=== PATIENT | male | born 1935 | race Caucasian/White ===

== ENCOUNTER 2016-11-13 15:52 | Emergency (ER) | payer MEDICARE, OTHER ==
[~2016-11-13] VITALS: Ht 165.1 cm; Wt 60.0 kg
[2016-11-13 15:53] VITALS: BP 136/89; PULSE 74; RESP 15; TEMP 97.3; O2SAT 97
[2016-11-13] MEDS ORDERED: LUMI0.01 EACH EYE (16:14)
--- NOTE | 2016-11-13 16:53 | PD ---
HPI Chief Complaint: Cold / Flu Symptoms Time Seen by Provider: 16:41 Travel History International Travel<30 days: No Contact w/Intl Traveler<30days: No Traveled to known affect area: No History of Present Illness HPI 81-year-old male complains of coughing congestion. Patient states the symptoms started about 2 months ago. Patient states the cough is persistent productive. Patient has history of COPD and hypertension. Patient is a nonsmoker. Patient denies any chest pain or shortness of breath. Patient states that he has intermittent nausea but no vomiting or diarrhea. Patient was seen at local urgent care center and about 4 weeks ago. Patient was given prescription for steroid, Levaquin and Tessalon. Patient finished the medications as directed. Patient states that he had persistent productive cough despite the medications. Patient denies abdominal pain. Patient denies any focal weakness or numbness of the extremity. PFSH Past Medical History Asthma: Yes Diminished Hearing: No Hypertension: Yes Tetanus Vaccination: Unknown Influenza Vaccination: No ?: Not Past Surgical History Eye Surgery: Yes (JOSE CATARCT) Social History Alcohol Use: Yes ([facility]) Tobacco Use: No Substance Use: No Allergies-Medications (Allergen,Severity, Reaction): Coded Allergies: No Known Allergies (Unverified , 11/13/16) Reported Meds & Prescriptions Reported Meds & Active Scripts Active Reported Lumigan Opth Drops (Bimatoprost) 0.01% Soln 1 Drop EACH EYE DAILY Review of Systems General / Constitutional: No: Fever Eyes: No: Visual changes HENT: No: Headaches Cardiovascular: No: Chest Pain or Discomfort Respiratory: Positive: Cough, No: Shortness of Breath Gastrointestinal: No: Abdominal Pain Genitourinary: No: Dysuria Musculoskeletal: No: Pain Skin: No Rash Neurologic: No: Weakness Psychiatric: No: Depression Endocrine: No: Polydipsia Hematologic/Lymphatic: No: Easy Bruising Physical Exam Narrative GENERAL: Well-nourished, well-developed patient. SKIN: Warm and dry. HEAD: Normocephalic. EYES: No scleral icterus. No injection or drainage. NECK: Supple, trachea midline. No JVD or lymphadenopathy. CARDIOVASCULAR: Regular rate and rhythm without murmurs, gallops, or rubs. RESPIRATORY: Breath sounds equal bilaterally. No accessory muscle use. Few rhonchi at the bases. No wheezes. GASTROINTESTINAL: Abdomen soft, non-tender, nondistended. MUSCULOSKELETAL: No cyanosis, or edema. BACK: Nontender without obvious deformity. No CVA tenderness. Neurologic exam: Patient is awake and alert oriented 3. No obvious focal neurological deficit. Data Data Last Documented VS Vital Signs Date Time Temp Pulse Resp B/P Pulse Ox O2 Delivery O2 Flow Rate FiO2 11/13/16 16:18 20 Room Air 11/13/16 15:53 97.3 74 136/89 97 Orders Complete Blood Count With Diff (11/13/16 16:49) Basic Metabolic Panel (Bmp) (11/13/16 16:49) Influenzae A/B Antigen (11/13/16 16:49) Chest, Single Ap (11/13/16 16:49) Iv Access Insert/Monitor (11/13/16 16:49) Labs Laboratory Tests Test 11/13/16 17:54 White Blood Count 15.5 TH/MM3 Red Blood Count 4.38 MIL/MM3 Hemoglobin 13.2 GM/DL Hematocrit 40.1 % Mean Corpuscular Volume 91.6 FL Mean Corpuscular Hemoglobin 30.2 PG Mean Corpuscular Hemoglobin 33.0 % Concent Red Cell Distribution Width 12.8 % Platelet Count 115 TH/MM3 Mean Platelet Volume 8.8 FL Neutrophils (%) (Auto) 67.1 % Lymphocytes (%) (Auto) 17.1 % Monocytes (%) (Auto) 7.6 % Eosinophils (%) (Auto) 1.1 % Basophils (%) (Auto) 7.1 % Neutrophils # (Auto) 10.3 TH/MM3 Lymphocytes # (Auto) 2.7 TH/MM3 Monocytes # (Auto) 1.2 TH/MM3 Eosinophils # (Auto) 0.2 TH/MM3 Basophils # (Auto) 1.1 TH/MM3 CBC Comment AUTO DIFF Differential Total Cells 100 Counted Neutrophils % (Manual) 80 % Band Neutrophils % 1 % Lymphocytes % 12 % Monocytes % 5 % Eosinophils % 2 % Neutrophils # (Manual) 12.6 TH/MM3 Differential Comment FINAL DIFF MANUAL Sodium Level 144 MEQ/L Potassium Level 4.3 MEQ/L Chloride Level 110 MEQ/L Carbon Dioxide Level 26.1 MEQ/L Anion Gap 8 MEQ/L Blood Urea Nitrogen 20 MG/DL Creatinine 1.20 MG/DL Estimat Glomerular Filtration 58 ML/MIN Rate Random Glucose 89 MG/DL Calcium Level 8.6 MG/DL MDM Medical Decision Making Medical Screen Exam Complete: Yes Emergency Medical Condition: Yes Interpretation(s) 1813 PM. Chest x-ray shows no acute consolidation. CBC WBC 15.5. Platelet 115. Normal differential. Influenza AB antigen negative. 1833 PM. BUN 20. Differential Diagnosis Differential diagnosis including acute exacerbation COPD, bronchitis, pneumonia , PE, pneumothorax. Narrative Course 81-year-old male with persistent coughing congestion. Patient states that the symptoms started 2 months ago. Patient has history of COPD. Diagnosis Primary Impression: Bronchitis Patient Instructions: General Instructions Additional Instructions: Medications as directed. Follow-up with personal physician. Return if persistent problem or worse. Med/Other Pt SpecificInfo: Prescription(s) given Scripts Azithromycin (Zithromax Z-Milad)250 Mg Sdpm850 Mg PO DIRECTED #1 DSPK Ref 0 500 MG (2 tabs) day 1, then 1 tab days 2-5. Prov:Andrea Keys MD 11/13/16 [Phenergan W Codein] No Conflict Check10 Ml PO Q6HR #180 Prov:Andrea Keys MD 11/13/16 Disposition: 01 DISCHARGE HOME Condition: Stable Andrea Keys MD Nov 13, 2016 16:53
--- NOTE | 2016-11-13 17:43 | RADHPO ---
EXAM DATE/TIME: 11/13/2016 17:28 [facility] COMPARISON: No previous studies available for comparison. INDICATIONS : Short of breath, cough MEDICAL HISTORY : Chronic obstructive pulmonary disease. SURGICAL HISTORY : None. ENCOUNTER: Initial ACUITY: 1 month PAIN SCORE: 0/10 LOCATION: Bilateral chest FINDINGS: A single view of the chest demonstrates the lungs to be symmetrically aerated without evidence of mas s, infiltrate or effusion. The cardiomediastinal contours are unremarkable. Osseous structures are intact. CONCLUSION: No acute cardiopulmonary disease demonstrated. Ed Mcfarland MD on November 13, 2016 at 17:41 Board Certified Radiologist. This report was verified electronically.
[2016-11-13 18:02] LABS: AUTOMATED NEUTROPHIL # 10.3 TH/MM3 (1.8-7.7); BASOPHIL # 1.1 TH/MM3 (0-0.2); BASOPHIL % 7.1 % (0.0-2.0); EOSINOPHIL # 0.2 TH/MM3 (0-0.4); EOSINOPHIL % 1.1 % (0.0-4.0); HEMATOCRIT 40.1 % (39.0-51.0); LYMPH % 17.1 % (9.0-44.0); LYMPHOCYTE # 2.7 TH/MM3 (1.0-4.8); MEAN CELL VOLUME 91.6 FL (80.0-100.0); MEAN CORPUSCULAR HEMOGLOBIN 30.2 PG (27.0-34.0); MONO % 7.6 % (0.0-8.0); NEUT % 67.1 % (16.0-70.0); PLATELET COUNT 115 TH/MM3 (150-450); RED BLOOD COUNT 4.38 MIL/MM3 (4.50-5.90); RED CELL DISTRIBUTION WIDTH 12.8 % (11.6-17.2); WHITE BLOOD COUNT 15.5 TH/MM3 (4.0-11.0)
[2016-11-13 18:08] LABS: POTASSIUM 4.3 MEQ/L (3.5-5.1)
[2016-11-13 18:11] LABS: BICARBONATE 26.1 MEQ/L (21.0-32.0); HEMO FLAGS AUTO DIFF
[2016-11-13 18:28] LABS: BANDS 1 % (0-6); EOSINOPHILS 2 % (0-4); NEUTROPHIL # MANUAL DIFF 12.6 TH/MM3 (1.8-7.7); POLYS (SEG NEUTROPHILS) 80 % (16-70); SCAN/DIFF FINAL DIFF MANUAL; WBC DIFF SAMPLE 100
[2016-11-13] MEDS ORDERED: ZITHTAB PO (18:39)
[2016-11-13] MEDS ORDERED: PHENERGAN W CODEIN PO (18:39)
== END 2016-11-13 18:47 | disposition home or self-care (01) ==
LOC: PHEFT 15:52
DX: J40 Bronchitis, not specified as acute or chronic (principal); J45.909 Unspecified asthma, uncomplicated; I10 Essential (primary) hypertension
CPT/HCPCS: 71010; 80048; 85007; 85027; 87804; 99283

== ENCOUNTER 2016-11-17 13:38 | Inpatient (IN) | payer MEDICARE ==
[~2016-11-17] VITALS: Ht 165.1 cm; Wt 69.1 kg
[2016-11-17] VITALS (7 sets, daily range): BP systolic 158–178; BP diastolic 71–80; PULSE 68–74; RESP 20–28; TEMP 96–98.6; O2SAT 92–100
[~2016-11-17 13:38] MED LIST: LUMI0.01 EACH EYE; PHENERGAN W CODEIN PO; ZITHTAB PO
[2016-11-17] MEDS ORDERED: CHOL20003 (14:14)
[2016-11-17] MEDS ORDERED: SYMB160A INH (14:14)
[2016-11-17] MEDS ORDERED: ASPI81TA81 (14:14)
[2016-11-17] MEDS ORDERED: FERR83TA (14:14)
[2016-11-17] MEDS ORDERED: DIOV80TA4 PO (14:14)
[2016-11-17] MEDS ORDERED: SODIUM CHLOR 0.9% 1000 ML INJ 1,000 ML IV SCH (14:30)
[2016-11-17 15:17] LABS: AUTOMATED NEUTROPHIL # 7.1 TH/MM3 (1.8-7.7); BASOPHIL # 0.1 TH/MM3 (0-0.2); BASOPHIL % 0.8 % (0.0-2.0); EOSINOPHIL # 0.1 TH/MM3 (0-0.4); HEMATOCRIT 39.9 % (39.0-51.0); HEMO FLAGS DIFF FINAL; LYMPH % 8.3 % (9.0-44.0); LYMPHOCYTE # 0.7 TH/MM3 (1.0-4.8); MEAN CELL VOLUME 92.7 FL (80.0-100.0); MEAN CORPUSCULAR HEMOGLOBIN 30.2 PG (27.0-34.0); MEAN CORPUSCULAR HGB CONC 32.6 % (32.0-36.0); MONO % 6.5 % (0.0-8.0); NEUT % 83.4 % (16.0-70.0); PLATELET COUNT 177 TH/MM3 (150-450); RED BLOOD COUNT 4.31 MIL/MM3 (4.50-5.90); RED CELL DISTRIBUTION WIDTH 13.2 % (11.6-17.2); WHITE BLOOD COUNT 8.6 TH/MM3 (4.0-11.0)
[2016-11-17 15:27] LABS: APTT (PATIENT) 30.2 SEC (24.3-30.1); PROTHROMBIN TIME - PATIENT 10.8 SEC (9.8-11.6)
[2016-11-17 15:34] LABS: ALT (GPT) 17 U/L (12-78); ANION GAP 10 MEQ/L (5-15); AST (GOT) 16 U/L (15-37); BICARBONATE 26.5 MEQ/L (21.0-32.0); BLOOD UREA NITROGEN 19 MG/DL (7-18); CHLORIDE 109 MEQ/L (98-107); GLOMERULAR FILTRATION RATE 60 ML/MIN (>89); SODIUM (NA) 145 MEQ/L (136-145)
[2016-11-17 15:36] LABS: POTASSIUM 4.5 MEQ/L (3.5-5.1)
[2016-11-17 15:40] LABS: BLOOD, URINE NEG (NEG); COMMENT (UR) CULT NOT INDICATED; CULTURE IF INDICATED CULT NOT INDICATED; GLUCOSE,URINE NEG (NEG); HYALINE CAST, URINE 1 /lpf (RARE); KETONE, URINE 10 mg/dL (NEG); MUCUS URINE FEW /lpf (OCC); NITRITE,URINE NEG (NEG); PH, URINE 5.5 (5.0-8.5); URINE COLOR YELLOW (YELLW/STRAW)
[2016-11-17 15:42] LABS: ALKALINE PHOSPHATASE 90 U/L (45-117); TOTAL BILIRUBIN ADULT 0.5 MG/DL (0.2-1.0)
--- NOTE | 2016-11-17 15:42 | RADRPT ---
EXAM DATE/TIME: 11/17/2016 15:26 [facility] COMPARISON: No previous studies available for comparison. INDICATIONS : Confusion, altered mental status and general weakness. RADIATION DOSE: 56.36 CTDIvol (mGy) MEDICAL HISTORY : Hypertension. Asthma. SURGICAL HISTORY : None. ENCOUNTER: Initial ACUITY: 1 day PAIN SCALE: 0/10 LOCATION: cranial TECHNIQUE: Multiple contiguous axial images were obtained of the head. Using automated exposure control and adj ustment of the mA and/or kV according to patient size, radiation dose was kept as low as reasonably a chievable to obtain optimal diagnostic quality images. FINDINGS: CEREBRUM: The ventricles and cortical sulci are mildly widened. No evidence of midline shift, mass lesion, hem orrhage or acute infarction. No extra-axial fluid collections are seen. POSTERIOR FOSSA: The cerebellum and brainstem are intact. The 4th ventricle is midline. The cerebellopontine angle i s unremarkable. EXTRACRANIAL: The visualized portion of the orbits is intact. There appears to be mild soft tissue swelling of the posterior medial superior right parietal scalp. SKULL: The calvaria is intact. No evidence of skull fracture. CONCLUSION: 1. No acute intracranial abnormality seen. 2. Age-related atrophy. Ed Echols MD on November 17, 2016 at 15:39 Board Certified Radiologist. This report was verified electronically.
--- NOTE | 2016-11-17 15:49 | RADRPT ---
EXAM DATE/TIME: 11/17/2016 15:24 [facility] COMPARISON: CHEST SINGLE AP, November 13, 2016, 17:28. INDICATIONS : Patient has had chest pain in the center of her chest and cough for a few months. Previous smoker. MEDICAL HISTORY : Chronic obstructive pulmonary disease. Asthma SURGICAL HISTORY : None. ENCOUNTER: Initial ACUITY: 1 day PAIN SCORE: 4/10 LOCATION: Bilateral chest FINDINGS: A single view of the chest demonstrates the lungs to be symmetrically aerated without evidence of mas s, infiltrate or effusion. The cardiomediastinal contours are unremarkable. There is an old healed l eft clavicle fracture.. CONCLUSION: No acute disease. Ed Echols MD on November 17, 2016 at 15:46 Board Certified Radiologist. This report was verified electronically.
[2016-11-17 15:50] LABS: CREATINE KINASE 55 U/L (39-308)
--- NOTE | 2016-11-17 16:36 | PD ---
HPI Chief Complaint: Altered Mental Status Time Seen by Provider: 14:15 Travel History International Travel<30 days: No Contact w/Intl Traveler<30days: No Traveled to known affect area: No History of Present Illness HPI 81-year-old male complains of generalized malaise and weakness, short of breath , coughing congestion, confusion. Patient was seen in emergency room 4 days ago with diagnosis of bronchitis. Patient was given prescription of Phenergan with codeine and Z-Milad. Patient has been taking the medications as directed. Patient states that he started having increasing confusion 3 hours prior to going back to the emergency room. Patient denies any headache. Patient states that he has intermittent pressure for the past 2 weeks. Patient denies any fever chills. Patient denies any nausea vomiting diarrhea. Patient denies abdominal pain. Patient denies any focal weakness or numbness of extremity. Patient has been eating well at home. PFSH Past Medical History Asthma: Yes Diminished Hearing: Yes ([place]) Hypertension: Yes Tetanus Vaccination: Unknown ?: Not Past Surgical History Eye Surgery: Yes (JOSE CATARCT) Social History Alcohol Use: Yes (occ) Tobacco Use: No Substance Use: No Allergies-Medications (Allergen,Severity, Reaction): Coded Allergies: No Known Allergies (Unverified , 11/13/16) Reported Meds & Prescriptions Reported Meds & Active Scripts Active Zithromax Z-Milad (Azithromycin) 250 Mg Dspk 250 Mg PO DIRECTED 500 MG (2 tabs) day 1, then 1 tab days 2-5. [Phenergan W Codein] 10 Ml PO Q6HR Reported D3 (Cholecalciferol) 2,000 Unit Cap Diovan (Valsartan) 80 Mg Tab 80 Mg PO DAILY Ferrous Sulfate 27 Mg Tab Aspir-81 (Aspirin) 81 Mg Tabdr Symbicort Inh (Budesonide/Formoterol Fumarate) 160-4.5 Mcg/Act Aero 2 Puff INH Q12HR Lumigan Opth Drops (Bimatoprost) 0.01% Soln 1 Drop EACH EYE DAILY Review of Systems General / Constitutional: No: Fever Eyes: No: Visual changes HENT: No: Headaches Cardiovascular: No: Chest Pain or Discomfort Respiratory: Positive: Cough, No: Shortness of Breath Gastrointestinal: No: Abdominal Pain Genitourinary: No: Dysuria Musculoskeletal: No: Pain Skin: No Rash Neurologic: No: Weakness Psychiatric: No: Depression Endocrine: No: Polydipsia Hematologic/Lymphatic: No: Easy Bruising Physical Exam Narrative GENERAL: Well-nourished, well-developed patient. SKIN: Warm and dry. HEAD: Normocephalic. EYES: No scleral icterus. No injection or drainage. NECK: Supple, trachea midline. No JVD or lymphadenopathy. CARDIOVASCULAR: Regular rate and rhythm without murmurs, gallops, or rubs. RESPIRATORY: Breath sounds equal bilaterally. No accessory muscle use. GASTROINTESTINAL: Abdomen soft, non-tender, nondistended. MUSCULOSKELETAL: No cyanosis, or edema. BACK: Nontender without obvious deformity. No CVA tenderness. Neurologic exam: Patient is awake with mild drowsiness. Patient answered all questions appropriately. No obvious focal neurological deficit. Data Data Last Documented VS Vital Signs Date Time Temp Pulse Resp B/P Pulse Ox O2 Delivery O2 Flow Rate FiO2 11/17/16 15:45 71 21 165/72 98 Room Air 11/17/16 13:44 98.6 Orders Electrocardiogram (11/17/16 ) Complete Blood Count With Diff (11/17/16 14:22) Comprehensive Metabolic Panel (11/17/16 14:22) Creatine Kinase (Cpk) (11/17/16 14:22) Troponin I (11/17/16 14:22) B-Type Natriuretic Peptide (11/17/16 14:22) Prothrombin Time / Inr (Pt) (11/17/16 14:22) Act Partial Throm Time (Ptt) (11/17/16 14:22) Blood Culture (11/17/16 14:22) Urinalysis - C+S If Indicated (11/17/16 14:22) Thyroid Stimulating Hormone (11/17/16 14:22) Chest, Single Ap (11/17/16 14:22) Ct Brain W/O Iv Contrast(Rout) (11/17/16 14:22) Iv Access Insert/Monitor (11/17/16 14:22) Ecg Monitoring (11/17/16 14:22) Oximetry (11/17/16 14:22) Lactic Acid (11/17/16 14:22) Sodium Chlor 0.9% 1000 Ml Inj (Ns 1000 M (11/17/16 14:30) Levofloxacin 750 Mg Premix Inj (Levaquin (11/17/16 16:45) Labs Laboratory Tests Test 11/17/16 11/17/16 15:03 15:10 White Blood Count 8.6 TH/MM3 Red Blood Count 4.31 MIL/MM3 Hemoglobin 13.0 GM/DL Hematocrit 39.9 % Mean Corpuscular Volume 92.7 FL Mean Corpuscular Hemoglobin 30.2 PG Mean Corpuscular Hemoglobin 32.6 % Concent Red Cell Distribution Width 13.2 % Platelet Count 177 TH/MM3 Mean Platelet Volume 8.9 FL Neutrophils (%) (Auto) 83.4 % Lymphocytes (%) (Auto) 8.3 % Monocytes (%) (Auto) 6.5 % Eosinophils (%) (Auto) 1.0 % Basophils (%) (Auto) 0.8 % Neutrophils # (Auto) 7.1 TH/MM3 Lymphocytes # (Auto) 0.7 TH/MM3 Monocytes # (Auto) 0.6 TH/MM3 Eosinophils # (Auto) 0.1 TH/MM3 Basophils # (Auto) 0.1 TH/MM3 CBC Comment DIFF FINAL Differential Comment Prothrombin Time 10.8 SEC Prothromb Time International 1.0 RATIO Ratio Activated Partial 30.2 SEC Thromboplast Time Sodium Level 145 MEQ/L Potassium Level 4.5 MEQ/L Chloride Level 109 MEQ/L Carbon Dioxide Level 26.5 MEQ/L Anion Gap 10 MEQ/L Blood Urea Nitrogen 19 MG/DL Creatinine 1.17 MG/DL Estimat Glomerular Filtration 60 ML/MIN Rate Random Glucose 86 MG/DL Calcium Level 9.2 MG/DL Total Bilirubin 0.5 MG/DL Aspartate Amino Transf 16 U/L (AST/SGOT) Alanine Aminotransferase 17 U/L (ALT/SGPT) Alkaline Phosphatase 90 U/L Total Creatine Kinase 55 U/L Troponin I LESS THAN 0.02 NG/ML B-Type Natriuretic Peptide 114 PG/ML Total Protein 7.5 GM/DL Albumin 3.3 GM/DL Thyroid Stimulating Hormone 0.551 uIU/ML 3rd Gen Urine Color YELLOW Urine Turbidity CLEAR Urine pH 5.5 Urine Specific [place] 1.023 Urine Protein TRACE mg/dL Urine Glucose (UA) NEG mg/dL Urine Ketones 10 mg/dL Urine Occult Blood NEG Urine Nitrite NEG Urine Bilirubin NEG Urine Urobilinogen 2.0 MG/DL Urine Leukocyte Esterase NEG Urine RBC LESS THAN 1 /hpf Urine WBC LESS THAN 1 /hpf Urine Hyaline Casts 1 /lpf Urine Mucus FEW /lpf Microscopic Urinalysis Comment CULT NOT INDICATED Lactic Acid Level 3.0 mmol/L MDM Medical Decision Making Medical Screen Exam Complete: Yes Emergency Medical Condition: Yes Interpretation(s) Last Impressions Head CT 11/17/16 1422 Signed Impressions: Service Date/Time: November 15:26 - CONCLUSION: 1. No acute intracranial abnormality seen. 2. Age-related atrophy. Ed Echols MD Chest X-Ray 11/17/161421 Signed Impressions: Service Date/Time: November 15:24 - CONCLUSION: No acute disease. Ed Echols MD 1634 PM. CBC within normal limit. WBC 8.6. 83 neutrophil. CMP within normal limit. BUN 19. Lactic acid 3.0.. Troponin normal. BNP 114. Differential Diagnosis Differential diagnosis including bronchitis, pneumonia, electrolyte abnormality , dehydration, sepsis Narrative Course 81-year-old male with generalized malaise and weakness, persistent cough, confusion this morning. Patient was treated for bronchitis 4 days ago. Normal saline solution 100 cc an hour. Levaquin 750 mg IV. Andrea Keys MD Nov 17, 2016 16:35
[2016-11-17] MEDS ORDERED: LEVOFLOXACIN 750 MG PREMIX INJ 150 ML IV ONE (16:45)
[2016-11-17] MEDS ORDERED: PROM6.256 PO (16:56)
--- NOTE | 2016-11-17 16:59 | HHI.HP ---
HPI Service [facility] Hospitalists Primary Care Physician No Primary Care Physician Admission Diagnosis Diagnoses: Chief Complaint: cough, congestion, confusion Travel History International Travel<30 Days: No Contact w/Intl Traveler <30 Da: No Traveled to Known Affected Are: No History of Present Illness 81-year-old male with history of childhood asthma, COPD, prior tobacco use, hypertension, hard of hearing, presents with a two-week history of cough, congestion, shortness of breath, and also increasing confusion today. The patient's is at bedside who assists with the history as the patient is very drowsy, hard of hearing, and oriented to person and year only; states he is at the dentist's office. The patient started experiencing nasal congestion and cough productive of clear sputum approximately two weeks ago. He went to an urgent care who gave him a prescription for an unknown antibiotic and prednisone. The patient never fully recovered, was having decreasing appetite and ongoing cough/congestion therefore he presented to [facility] ER on 11/13/16, chest x-ray was clear, diagnosed with bronchitis, and he was discharged with a Z-Milad and Phenergan with codeine. He has been taking his medications as prescribed. The patient was doing slightly better, however today he became acutely confused, talking nonsense, saying he needed one hundred dollars to pay someone back, and also did not know where the bathroom was in his own home. Last use of phenergan with codeine was yesterday. Denies any recent fevers/chills. Still with a cough productive of clear sputum. He has not been eating regularly and has lost around 30lbs in the past 6 months, previously weighed 160lbs. [place] esophageal [place] ( [place] however now food is starting to get stuck again. The tried to help the patient take a shower today, however he became extremely weak in the legs and needed a lot of assistance. This prompted her to bring him to the ER. While in the ER, the patient is very drowsy, constantly has to be awoken from sleep to answer questions, he would smile and make jokes when asking orientation questions but ultimately was only oriented to person, states the date is March 18, 2017, and that he is at the dentist's office. He cannot tell me what made him come to the hospital. Review of Systems ROS Limitations: Altered Mental Status, Hearing Impaired Except as stated in HPI: all other systems reviewed are Neg Past Family Social History Past Medical History Asthma/COPD Hypertension Hard of hearing Past Surgical History Bilateral cataract surgery EGD with dilatation in May 2016 Colonoscopy 2 years ago Reported Medications Zithromax Z-Milad (Azithromycin) 250 Mg Dspk 250 Mg PO DIRECTED 500 MG (2 tabs) day 1, then 1 tab days 2-5. [Phenergan W Codein] 10 Ml PO Q6HR D3 (Cholecalciferol) 2,000 Unit Cap Diovan (Valsartan) 80 Mg Tab 80 Mg PO DAILY Ferrous Sulfate 27 Mg Tab Aspir-81 (Aspirin) 81 Mg Tabdr Symbicort Inh (Budesonide/Formoterol Fumarate) 160-4.5 Mcg/Act Aero 2 Puff INH Q12HR [place] Opth Drops (Bimatoprost) 0.01% Soln 1 Drop EACH EYE DAILY Allergies: Coded Allergies: No Known Allergies (Unverified , 11/13/16) Active Ordered Medications Current Medications Medications (Trade) Dose Ordered Sig/Danielle Route Start Time Stop Time Status Last Admin (Levaquin 750 Mg Premix Inj) 150 ml @ 100 mls/hr ONCE ONCE IV 11/17/16 16:45 11/17/16 18:14 11/17/16 17:01 (Symbicort 160-4.5 Inh) 2 puff Q12HR INH 11/17/16 21:00 UNV (Diovan) 80 mg DAILY PO 11/18/16 09:00 UNV Non-Formulary Medication 1 drop 1 drop DAILY EACH EYE 11/18/16 09:00 UNV (NS 1000 ml Inj) 1,000 ml @ 60 mls/hr [id number] IV 11/17/16 17:12 UNV (NS Flush) 2 ml UNSCH PRN FLUSH 11/17/16 17:15 UNV (NS Flush) 2 ml BID FLUSH 11/17/16 21:00 UNV (Zofran Inj) 4 mg Q6H PRN IVP 11/17/16 17:15 UNV (Colace) 100 mg Q12H PRN PO 11/17/16 17:15 UNV (Tylenol) 650 mg Q6H PRN PO 11/17/16 17:15 UNV ([place] 5-325 Mg) 1 tab Q4H PRN PO 11/17/16 17:15 UNV Naloxone HCl 0.4 mg 0.4 mg UNSCH PRN IV 11/17/16 17:15 UNV (Levaquin 750 Mg Premix Inj) 150 ml @ 100 mls/hr Q24H IV 11/18/16 17:00 UNV Family History Father in his sleep 40 years ago, unknown medical problems Mother around age 90, no significant medical problems Patient's children are healthy. Social History Prior tobacco use, started in his early 40s, smoked 1 PPD, quit 6months ago Alcohol use - 1 drink every evening, however not in the past few weeks Drug use - denies Lives with his Physical Exam Vital Signs Vital Signs Date Time Temp Pulse Resp B/P Pulse Ox O2 Delivery O2 Flow Rate FiO2 11/17/16 15:45 71 21 165/72 98 Room Air 11/17/16 14:53 100 Room Air 11/17/16 14:08 73 20 100 Room Air 11/17/16 14:07 74 22 178/80 100 Room Air 11/17/16 13:44 98.6 73 28 160/74 Room Air Physical Exam GENERAL: Well-nourished, well-developed elderly male patient in [facility]. SKIN: Warm and dry. No rash. HEAD: Normocephalic. Atraumatic. EYES: Pupils equal and round. No scleral icterus. No injection or drainage. ENT: No nasal bleeding or discharge. Mucous membranes slightly dry. NECK: Supple. Trachea midline. CARDIOVASCULAR: Regular rate and rhythm. S1, S2 noted. No murmur appreciated. RESPIRATORY: No accessory muscle use. Clear to auscultation. Breath sounds equal bilaterally. GASTROINTESTINAL: Abdomen soft, non-tender, nondistended. Normoactive bowel sounds x4. MUSCULOSKELETAL: No obvious deformities. Extremities without clubbing, cyanosis , or edema. NEUROLOGICAL: Awake and alert, oriented to person/year only. No obvious cranial nerve deficits. Motor grossly within normal limits. Moves all extremities equally and spontaneously however generalized weakness, does not follow commands with strength testing. Normal speech. PSYCHIATRIC: Appropriate mood and affect; insight and judgment limited currently. Laboratory Laboratory Tests Test 11/17/16 11/17/16 15:03 15:10 White Blood Count 8.6 Red Blood Count 4.31 Hemoglobin 13.0 Hematocrit 39.9 Mean Corpuscular Volume 92.7 Mean Corpuscular Hemoglobin 30.2 Mean Corpuscular Hemoglobin 32.6 Concent Red Cell Distribution Width 13.2 Platelet Count 177 Mean Platelet Volume 8.9 Neutrophils (%) (Auto) 83.4 Lymphocytes (%) (Auto) 8.3 Monocytes (%) (Auto) 6.5 Eosinophils (%) (Auto) 1.0 Basophils (%) (Auto) 0.8 Neutrophils # (Auto) 7.1 Lymphocytes # (Auto) 0.7 Monocytes # (Auto) 0.6 Eosinophils # (Auto) 0.1 Basophils # (Auto) 0.1 CBC Comment DIFF FINAL Differential Comment Prothrombin Time 10.8 Prothromb Time International 1.0 Ratio Activated Partial 30.2 Thromboplast Time Sodium Level 145 Potassium Level 4.5 Chloride Level 109 Carbon Dioxide Level 26.5 Anion Gap 10 Blood Urea Nitrogen 19 Creatinine 1.17 Estimat Glomerular Filtration 60 Rate Random Glucose 86 Calcium Level 9.2 Total Bilirubin 0.5 Aspartate Amino Transf 16 (AST/SGOT) Alanine Aminotransferase 17 (ALT/SGPT) Alkaline Phosphatase 90 Total Creatine Kinase 55 Troponin I LESS THAN 0.02 B-Type Natriuretic Peptide 114 Total Protein 7.5 Albumin 3.3 Thyroid Stimulating Hormone 0.551 3rd Gen Urine Color YELLOW Urine Turbidity CLEAR Urine pH 5.5 Urine Specific [place] 1.023 Urine Protein TRACE Urine Glucose (UA) NEG Urine Ketones 10 Urine Occult Blood NEG Urine Nitrite NEG Urine Bilirubin NEG Urine Urobilinogen 2.0 Urine Leukocyte Esterase NEG Urine RBC LESS THAN 1 Urine WBC LESS THAN 1 Urine Hyaline Casts 1 Urine Mucus FEW Microscopic Urinalysis Comment CULT NOT INDICATED Lactic Acid Level 3.0 Date/Time Procedure Status Source Growth 11/17/16 15:10 Aerobic Blood Culture Received Blood Peripheral Pending 11/17/16 15:10 Anaerobic Blood Culture Received Blood Peripheral Pending Result Diagram: 11/17/16 1503 11/17/16 1503 Imaging Last Impressions Head CT 11/17/16 1422 Signed Impressions: Service Date/Time: November 15:26 - CONCLUSION: 1. No acute intracranial abnormality seen. 2. Age-related atrophy. Ed Echols MD Chest X-Ray 11/17/16 1422 Signed Impressions: Service Date/Time: November 15:24 - CONCLUSION: No acute disease. Ed Echols MD Assessment and Plan Problem List: (1) Pneumonia ICD Code: J18.9 Status: Acute (2) Failure of outpatient treatment ICD Code: Z78.9 Status: Acute (3) Acute metabolic encephalopathy ICD Code: G93.41 Status: Acute (4) HTN (hypertension) ICD Code: I10 Status: Chronic Assessment and Plan 81-year-old male with history of childhood asthma, COPD, prior tobacco use, hypertension, hard of hearing, presents with a two-week history of cough, congestion, shortness of breath, and also increasing confusion today. Pneumonia, Failed Outpatient Therapy: previously completed treatment from Urgent Care 2 weeks ago with unknown abx and prednisone. Also started treatment with Z-milad on 11/13, now with worsening symptoms - productive cough,congestion. Leukocytosis improved from prior visit WBC 15K --> 8K. Afebrile. CXR images reviewed by me, no acute findings. Check sputum culture, urinary legionella/ pneumococcal antigens. Continue IV Levaquin 750mg daily. Lactic Acidosis: Lactic acid 3.0. Suspect secondary to dehydration/infection. Give IVF. Repeat Lactic acid. Acute Metabolic Encephalopathy & Weakness: acute onset confusion/weakness today 11/17. Suspect related to pneumonia as above, however rule out other etiologies/ infection. Head CT unremarkable. UA clear. Blood cultures collected. Continue abx. Consult PT/OT/ST. Dysphagia with Weight Loss 30+lbs: hx of esophageal dilatation in . Check swallow eval with ST. Consider GI eval vs outpatient f/up for dilatation. COPD: no wheezing on exam however lung sounds diminished. Duonebs prn. Continue patient's Symbicort. Hypertension: chronic, continue patient's valsartan. Monitor BP and adjust antihypertensives as needed. DVT Prophylaxis: teds/SCDs Discussed with ED RN and Dr. Andrade. Seen in the room and discussed with patient's agree with management. Code Status Full Code Discussed Condition With Patient, Patient's at Bedside Physician Certification 2 Midnight Certification Type: Admission for Inpatient Services Order for Inpatient Services The services are ordered in accordance with Medicare regulations or non- Medicare payer requirements, as applicable. In the case of services not specified as inpatient-only, they are appropriately provided as inpatient services in accordance with the 2-midnight benchmark. Estimated LOS (days): 4 days is the estimated time the patient will need to remain in the hospital, assuming treatment plan goals are met and no additional complications. Post-Hospital Plan: Not yet determined Katerin Quesada PA-C Nov 17, 2016 16:59 Armand Whiteside MD Nov 17, 2016 19:58
[2016-11-17] MEDS ORDERED: SODIUM CHLORIDE 0.9% FLUSH 5 ML FLUSH FLUSH PRN (17:15)
[2016-11-17] MEDS ORDERED: NALOXONE HCL 0.4 MG/ML AMP IV PRN (17:15)
[2016-11-17] MEDS ORDERED: DOCUSATE SODIUM 100 MG CAP PO PRN (17:15)
[2016-11-17] MEDS ORDERED: ACETAMINOPHEN/HYDROcodone 325 MG/5 MG TAB PO PRN (18:00)
[2016-11-17] MEDS ORDERED: ONDANSETRON HCL 4 MG/2 ML VIAL IVP PRN (18:00)
[2016-11-17] MEDS ORDERED: ACETAMINOPHEN 325 MG TAB PO PRN (18:00)
[2016-11-17] MEDS ORDERED: RESP: ALBUTEROL 2.5 MG/IPRATROPIUM 0.5 MG NEB (PRN) NEB (18:00)
[2016-11-17] MEDS: SODIUM CHLOR 0.9% 1000 ML INJ 1,000 ML IV SCH (18:48)
[2016-11-17] MEDS: SODIUM CHLORIDE 0.9% FLUSH 5 ML FLUSH FLUSH SCH (21:00)
[2016-11-17] MEDS: BUDESONIDE-FORMOTEROL 160/4.5 MCG INHALER INH SCH (21:18)
[2016-11-18] VITALS (8 sets, daily range): BP systolic 120–185; BP diastolic 59–87; PULSE 66–74; RESP 16–20; TEMP 96.3–99; O2SAT 92–98
[2016-11-18 07:01] LABS: AUTOMATED NEUTROPHIL # 6.1 TH/MM3 (1.8-7.7); BASOPHIL # 0.1 TH/MM3 (0-0.2); BASOPHIL % 1.1 % (0.0-2.0); EOSINOPHIL # 0.1 TH/MM3 (0-0.4); EOSINOPHIL % 0.7 % (0.0-4.0); HEMATOCRIT 35.2 % (39.0-51.0); HEMO FLAGS DIFF FINAL; LYMPH % 12.5 % (9.0-44.0); MEAN CELL VOLUME 90.7 FL (80.0-100.0); MEAN CORPUSCULAR HEMOGLOBIN 30.3 PG (27.0-34.0); MEAN CORPUSCULAR HGB CONC 33.4 % (32.0-36.0); MONO % 9.1 % (0.0-8.0); NEUT % 76.6 % (16.0-70.0); PLATELET COUNT 136 TH/MM3 (150-450); RED BLOOD COUNT 3.88 MIL/MM3 (4.50-5.90); RED CELL DISTRIBUTION WIDTH 13.2 % (11.6-17.2); WHITE BLOOD COUNT 7.9 TH/MM3 (4.0-11.0)
[2016-11-18 07:25] LABS: ALKALINE PHOSPHATASE 78 U/L (45-117); ALT (GPT) 13 U/L (12-78); ANION GAP 11 MEQ/L (5-15); AST (GOT) 11 U/L (15-37); BICARBONATE 23.6 MEQ/L (21.0-32.0); CHLORIDE 110 MEQ/L (98-107); GLOMERULAR FILTRATION RATE 73 ML/MIN (>89); POTASSIUM 4.1 MEQ/L (3.5-5.1); SODIUM (NA) 145 MEQ/L (136-145); TOTAL BILIRUBIN ADULT 0.5 MG/DL (0.2-1.0)
[2016-11-18 07:26] LABS: BLOOD UREA NITROGEN 14 MG/DL (7-18)
[2016-11-18] MEDS: BUDESONIDE-FORMOTEROL 160/4.5 MCG INHALER INH SCH ×2 (09:00→21:22)
[2016-11-18] MEDS: VALSARTAN 80 MG TAB PO SCH (09:00)
[2016-11-18] MEDS: SODIUM CHLORIDE 0.9% FLUSH 5 ML FLUSH FLUSH SCH ×2 (09:00→21:22)
--- NOTE | 2016-11-18 09:22 | HHI.PR ---
Subjective Remarks 81-year-old male with history of childhood asthma, COPD, prior tobacco use, hypertension, hard of hearing, presents with a two-week history of cough, congestion, shortness of breath, and also increasing confusion today. The patient's is at bedside who assists with the history as the patient is very drowsy, hard of hearing, and oriented to person and year only; states he is at the dentist's office. The patient started experiencing nasal congestion and cough productive of clear sputum approximately two weeks ago. He went to an urgent care who gave him a prescription for an unknown antibiotic and prednisone. The patient never fully recovered, was having decreasing appetite and ongoing cough/congestion therefore he presented to [facility] ER on 11/13/16, chest x-ray was clear, diagnosed with bronchitis, and he was discharged with a Z-Milad and Phenergan with codeine. He has been taking his medications as prescribed. The patient was doing slightly better, however today he became acutely confused, talking nonsense, saying he needed one hundred dollars to pay someone back, and also did not know where the bathroom was in his own home. Last use of phenergan with codeine was yesterday. Denies any recent fevers/chills. Still with a cough productive of clear sputum. He has not been eating regularly and has lost around 30lbs in the past 6 months, previously weighed 160lbs. He did have an esophageal dilatation in [place] 2016 ( [place] of [place]) however now food is starting to get stuck again. The tried to help the patient take a shower today, however he became extremely weak in the legs and needed a lot of assistance. This prompted her to bring him to the ER. While in the ER, the patient is very drowsy, constantly has to be awoken from sleep to answer questions, he would smile and make jokes when asking orientation questions but ultimately was only oriented to person, states the date is March 18, 2017, and that he is at the dentist's office. He cannot tell me what made him come to the hospital. Objective Vital Signs Date Time Temp Pulse Resp B/P Pulse Ox O2 Delivery O2 Flow Rate FiO2 11/18/16 08:34 97.8 66 19 166/79 98 11/18/16 04:00 96.5 73 20 131/73 94 11/18/16 02:17 95 21 11/18/16 02:09 94 Room Air 11/18/16 00:00 96.3 68 20 143/66 92 11/17/16 22:53 68 11/17/16 20:30 96.0 73 20 167/71 92 11/17/16 19:36 70 22 158/78 98 Room Air 11/17/16 15:45 71 21 165/72 98 Room Air 11/17/16 14:53 100 Room Air 11/17/16 14:08 73 20 100 Room Air 11/17/16 14:07 74 22 178/80 100 Room Air 11/17/16 13:44 98.6 73 28 160/74 Room Air I/O 11/17/16 11/17/16 11/17/16 11/18/16 11/18/16 11/18/16 07:00 15:00 23:00 07:00 15:00 23:00 Intake Total 60 ml 720 ml Balance 60 ml 720 ml Intake Oral 60 ml 120 ml IV Total 600 ml # Voids 1 2 # Bowel Movements 0 0 Result Diagram: 11/18/1661811/18/16618 Imaging Last Impressions Head CT 11/17/161421 Signed Impressions: Service Date/Time: November 15:26 - CONCLUSION: 1. No acute intracranial abnormality seen. 2. Age-related atrophy. Ed Echols MD Chest X-Ray 11/17/161421 Signed Impressions: Service Date/Time: November 15:24 - CONCLUSION: No acute disease. Ed Echols MD Procedures No procedures performed Other Results Laboratory Tests Test 11/17/16 11/17/16 11/17/16 11/18/16 15:03 15:10 19:02 06:19 Prothrombin Time 10.8 SEC Prothromb Time International 1.0 RATIO Ratio Activated Partial 30.2 SEC Thromboplast Time Total Creatine Kinase 55 U/L Troponin I LESS THAN 0.02 NG/ML B-Type Natriuretic Peptide 114 PG/ML Thyroid Stimulating Hormone 0.551 uIU/ML 3rd Gen Urine Color YELLOW Urine Turbidity CLEAR Urine pH 5.5 Urine Specific [place] 1.023 Urine Protein TRACE mg/dL Urine Glucose (UA) NEG mg/dL Urine Ketones 10 mg/dL Urine Occult Blood NEG Urine Nitrite NEG Urine Bilirubin NEG Urine Urobilinogen 2.0 MG/DL Urine Leukocyte Esterase NEG Urine RBC LESS THAN 1 /hpf Urine WBC LESS THAN 1 /hpf Urine Hyaline Casts 1 /lpf Urine Mucus FEW /lpf Microscopic Urinalysis Comment CULT NOT INDICATED Lactic Acid Level 2.2 mmol/L White Blood Count 7.9 TH/MM3 Red Blood Count 3.88 MIL/MM3 Hemoglobin 11.8 GM/DL Hematocrit 35.2 % Mean Corpuscular Volume 90.7 FL Mean Corpuscular Hemoglobin 30.3 PG Mean Corpuscular Hemoglobin 33.4 % Concent Red Cell Distribution Width 13.2 % Platelet Count 136 TH/MM3 Mean Platelet Volume 9.3 FL Neutrophils (%) (Auto) 76.6 % Lymphocytes (%) (Auto) 12.5 % Monocytes (%) (Auto) 9.1 % Eosinophils (%) (Auto) 0.7 % Basophils (%) (Auto) 1.1 % Neutrophils # (Auto) 6.1 TH/MM3 Lymphocytes # (Auto) 1.0 TH/MM3 Monocytes # (Auto) 0.7 TH/MM3 Eosinophils # (Auto) 0.1 TH/MM3 Basophils # (Auto) 0.1 TH/MM3 CBC Comment DIFF FINAL Differential Comment Sodium Level 145 MEQ/L Potassium Level 4.1 MEQ/L Chloride Level 110 MEQ/L Carbon Dioxide Level 23.6 MEQ/L Anion Gap 11 MEQ/L Blood Urea Nitrogen 14 MG/DL Creatinine 0.99 MG/DL Estimat Glomerular Filtration 73 ML/MIN Rate Random Glucose 85 MG/DL Calcium Level 8.3 MG/DL Total Bilirubin 0.5 MG/DL Aspartate Amino Transf 11 U/L (AST/SGOT) Alanine Aminotransferase 13 U/L (ALT/SGPT) Alkaline Phosphatase 78 U/L Total Protein 5.9 GM/DL Albumin 2.8 GM/DL Objective Remarks GENERAL: No acute distress, in sitting position improving clinically. SKIN: Warm and dry. No rash. HEAD: Normocephalic. Atraumatic. EYES: Pupils equal and round. No scleral icterus. No injection or drainage. ENT: No nasal bleeding or discharge. Mucous membranes slightly dry. NECK: Supple. Trachea midline. CARDIOVASCULAR: Regular rate and rhythm. S1, S2 noted. No murmur appreciated. RESPIRATORY: No accessory muscle use. Clear to auscultation. Breath sounds equal bilaterally. GASTROINTESTINAL: Abdomen soft, non-tender, nondistended. Normoactive bowel sounds x4. MUSCULOSKELETAL: No obvious deformities. Extremities without clubbing, cyanosis , or edema. NEUROLOGICAL: Awake and alert, oriented to person/year only. No obvious cranial nerve deficits. Motor grossly within normal limits. Moves all extremities equally and spontaneously however generalized weakness, does not follow commands with strength testing. Normal speech. PSYCHIATRIC: Appropriate mood and affect; insight and judgment limited currently. Medications and IVs Current Medications Medications (Trade) Dose Ordered Sig/Danielle Route Start Time Stop Time Status Last Admin (Symbicort 160-4.5 Inh) 2 puff Q12HR INH 11/17/16 21:00 11/17/16 21:18 (Diovan) 80 mg DAILY PO 11/18/16 09:00 Latanoprost 1 drop 1 drop DAILY EACH EYE 11/18/16 09:00 (NS 1000 ml Inj) 1,000 ml @ 60 mls/hr [id number] IV 11/17/16 18:00 11/17/16 18:48 (NS Flush) 2 ml UNSCH PRN FLUSH 11/17/16 17:15 (NS Flush) 2 ml BID FLUSH 11/17/16 21:00 (Zofran Inj) 4 mg Q6H PRN IVP 11/17/16 18:00 (Colace) 100 mg Q12H PRN PO 11/17/16 17:15 (Tylenol) 650 mg Q6H PRN PO 11/17/16 18:00 ([place] 5-325 Mg) 1 tab Q4H PRN PO 11/17/16 18:00 Naloxone HCl 0.4 mg 0.4 mg UNSCH PRN IV 11/17/16 17:15 (Levaquin 750 Mg Premix Inj) 150 ml @ 100 mls/hr Q24H IV 11/18/16 17:00 A/P Problem List: (1) Bronchitis ICD Code: J40 (2) Pneumonia ICD Code: J18.9 (3) HTN (hypertension) ICD Code: I10 (4) Failure of outpatient treatment ICD Code: Z78.9 (5) Acute metabolic encephalopathy ICD Code: G93.41 Assessment and Plan 1. Bronchitis he has suspected infection and is Improving on Empiric Antibiotic Levofloxacin, today able to be sitting improving his Acute toxic Encephalopathy. his by his side. agree with management. he failed outpatient therapy he was on Antibiotics and Prednisone, his Lactic Acidosis was 3 and came down to 2.2 2. COPD non exacerbated will continue Bronchodilator, Mucolytic and incentive spirometry. 3. Hypertension controlled. 4. Acute Metabolic Encephalopathy and weakness, Improving today, but continue with weakness and steadiness. 5. Dysphagia with weight loss 30 pounds, history of esophageal dilatation in May 2016, Speech therapy evaluation negative, continue normal diet. DVT Prophylaxis: Lovenox Seen by Physical Therapy no need will go home with helping the patient. Seen in the room and discussed with patient's agree with management. Code Status Full Code Discharge Planning Home with tomorrow morning if continue Improving. Armand Whiteside MD Nov 18, 2016 09:22 Armand Whiteside MD Nov 18, 2016 09:22
[2016-11-18] MEDS: SODIUM CHLOR 0.9% 1000 ML INJ 1,000 ML IV SCH (10:40)
[2016-11-18] MEDS: LATANOPROST 0.005% OPHT SOLN 2.5 ML BTL EACH EYE SCH (11:54)
--- NOTE | 2016-11-18 15:50 | EKG ---
Date Performed: 11/17/2016 Time Performed: 12:13:54 PTAGE: 81 years EKG: Sinus rhythm BORDERLINE LEFT AXIS DEVIATION BASELINE ARTIFACT NO PRIOR FOR COMPARISON BORDERLINE ECG NO PREVIOUS TRACING DOCTOR: Heather Chapman Interpretating Date/Time 11/18/2016 15:49:29
[2016-11-18] MEDS ORDERED: LEVOFLOXACIN 750 MG PREMIX INJ 150 ML IV SCH (17:00)
[2016-11-18] MEDS ORDERED: ENOXAPARIN SODIUM 40 MG/0.4 ML SYRINGE SQ SCH (18:00)
[2016-11-18] MEDS: ASPIRIN 81 MG CHEW TAB CHEW SCH (18:31)
[2016-11-18] MEDS ORDERED: ENALAPRILAT 1.25 MG/ML VIAL IV PUSH ONE (22:00)
[2016-11-19] VITALS: BP 150/90; PULSE 68; RESP 18; TEMP 96.9; O2SAT 98
[2016-11-19] MEDS: SODIUM CHLOR 0.9% 1000 ML INJ 1,000 ML IV SCH (01:39)
[2016-11-19 04:00] VITALS: BP 160/87; PULSE 103; RESP 22; TEMP 98.9; O2SAT 93
[2016-11-19 08:05] VITALS: PULSE 65
[2016-11-19] MEDS: LATANOPROST 0.005% OPHT SOLN 2.5 ML BTL EACH EYE SCH (08:39)
[2016-11-19] MEDS: SODIUM CHLORIDE 0.9% FLUSH 5 ML FLUSH FLUSH SCH (08:40)
[2016-11-19 08:41] VITALS: BP 138/82; PULSE 73; RESP 18; TEMP 98.3; O2SAT 97
[2016-11-19] MEDS: BUDESONIDE-FORMOTEROL 160/4.5 MCG INHALER INH SCH (08:41)
[2016-11-19] MEDS: ASPIRIN 81 MG CHEW TAB CHEW SCH (08:42)
[2016-11-19] MEDS: VALSARTAN 80 MG TAB PO SCH (08:42)
--- NOTE | 2016-11-19 08:44 | HHI.PR ---
Subjective Remarks 81-year-old male with history of childhood asthma, COPD, prior tobacco use, hypertension, hard of hearing, presents with a two-week history of cough, congestion, shortness of breath, and also increasing confusion today. The patient's is at bedside who assists with the history as the patient is very drowsy, hard of hearing, and oriented to person and year only; states he is at the dentist's office. The patient started experiencing nasal congestion and cough productive of clear sputum approximately two weeks ago. He went to an urgent care who gave him a prescription for an unknown antibiotic and prednisone. The patient never fully recovered, was having decreasing appetite and ongoing cough/congestion therefore he presented to [facility] ER on 11/13/16, chest x-ray was clear, diagnosed with bronchitis, and he was discharged with a Z-Milad and Phenergan with codeine. He has been taking his medications as prescribed. The patient was doing slightly better, however today he became acutely confused, talking nonsense, saying he needed one hundred dollars to pay someone back, and also did not know where the bathroom was in his own home. Last use of phenergan with codeine was yesterday. Denies any recent fevers/chills. Still with a cough productive of clear sputum. He has not been eating regularly and has lost around 30lbs in the past 6 months, previously weighed 160lbs. [place] esophageal dil[place] ( [place] however now food is starting to get stuck again. The tried to help the patient take a shower today, however he became extremely weak in the legs and needed a lot of assistance. This prompted her to bring him to the ER. While in the ER, the patient is very drowsy, constantly has to be awoken from sleep to answer questions, he would smile and make jokes when asking orientation questions but ultimately was only oriented to person, states the date is March 18, 2017, and that he is at the dentist's office. He cannot tell me what made him come to the hospital. 11/19 Seen in his bedroom in the presence of nurse Miss Aguayo and his , he is improving, as per PT and OT no need to continue home management, he has good support at home, also he is been instructed about his nutritional state needs to get at least three times a day with Boost for Protein intake, he improved on Empiric Levofloxacin will continue for five days including today and follow by PCP. Objective Vital Signs Date Time Temp Pulse Resp B/P Pulse Ox O2 Delivery O2 Flow Rate FiO2 11/19/16 04:00 98.9 103 22 160/87 93 11/19/16 00:00 96.9 68 18 150/90 98 11/18/16 20:00 67 11/18/16 20:00 99.0 71 16 185/87 98 11/18/16 16:43 97.8 73 19 120/59 97 11/18/16 12:01 97.8 70 18 175/83 95 11/18/16 10:00 Room Air 11/18/16 09:00 74 I/O 11/18/16 11/18/16 11/18/16 11/19/16 11/19/16 11/19/16 07:00 15:00 23:00 07:00 15:00 23:00 Intake Total 720 ml 240 ml Balance 720 ml 240 ml Intake Oral 120 ml 240 ml IV Total 600 ml # Voids 2 2 10 # Bowel Movements 0 0 Result Diagram: 11/18/1661811/18/16618 Imaging Last Impressions Head CT 11/17/161421 Signed Impressions: Service Date/Time: November 15:26 - CONCLUSION: 1. No acute intracranial abnormality seen. 2. Age-related atrophy. Ed Echols MD Chest X-Ray 11/17/161421 Signed Impressions: Service Date/Time: November 15:24 - CONCLUSION: No acute disease. Ed Echols MD Procedures No procedures performed Other Results Laboratory Tests Test 11/17/16 11/17/16 11/17/16 11/18/16 15:03 15:10 19:02 06:19 Prothrombin Time 10.8 SEC Prothromb Time International 1.0 RATIO Ratio Activated Partial 30.2 SEC Thromboplast Time Total Creatine Kinase 55 U/L Troponin I LESS THAN 0.02 NG/ML B-Type Natriuretic Peptide 114 PG/ML Thyroid Stimulating Hormone 0.551 uIU/ML 3rd Gen Urine Color YELLOW Urine Turbidity CLEAR Urine pH 5.5 Urine Specific [place] 1.023 Urine Protein TRACE mg/dL Urine Glucose (UA) NEG mg/dL Urine Ketones 10 mg/dL Urine Occult Blood NEG Urine Nitrite NEG Urine Bilirubin NEG Urine Urobilinogen 2.0 MG/DL Urine Leukocyte Esterase NEG Urine RBC LESS THAN 1 /hpf Urine WBC LESS THAN 1 /hpf Urine Hyaline Casts 1 /lpf Urine Mucus FEW /lpf Microscopic Urinalysis Comment CULT NOT INDICATED Lactic Acid Level 2.2 mmol/L White Blood Count 7.9 TH/MM3 Red Blood Count 3.88 MIL/MM3 Hemoglobin 11.8 GM/DL Hematocrit 35.2 % Mean Corpuscular Volume 90.7 FL Mean Corpuscular Hemoglobin 30.3 PG Mean Corpuscular Hemoglobin 33.4 % Concent Red Cell Distribution Width 13.2 % Platelet Count 136 TH/MM3 Mean Platelet Volume 9.3 FL Neutrophils (%) (Auto) 76.6 % Lymphocytes (%) (Auto) 12.5 % Monocytes (%) (Auto) 9.1 % Eosinophils (%) (Auto) 0.7 % Basophils (%) (Auto) 1.1 % Neutrophils # (Auto) 6.1 TH/MM3 Lymphocytes # (Auto) 1.0 TH/MM3 Monocytes # (Auto) 0.7 TH/MM3 Eosinophils # (Auto) 0.1 TH/MM3 Basophils # (Auto) 0.1 TH/MM3 CBC Comment DIFF FINAL Differential Comment Sodium Level 145 MEQ/L Potassium Level 4.1 MEQ/L Chloride Level 110 MEQ/L Carbon Dioxide Level 23.6 MEQ/L Anion Gap 11 MEQ/L Blood Urea Nitrogen 14 MG/DL Creatinine 0.99 MG/DL Estimat Glomerular Filtration 73 ML/MIN Rate Random Glucose 85 MG/DL Calcium Level 8.3 MG/DL Total Bilirubin 0.5 MG/DL Aspartate Amino Transf 11 U/L (AST/SGOT) Alanine Aminotransferase 13 U/L (ALT/SGPT) Alkaline Phosphatase 78 U/L Total Protein 5.9 GM/DL Albumin 2.8 GM/DL Objective Remarks GENERAL: No acute distress, in sitting position improving clinically. SKIN: Warm and dry. No rash. HEAD: Normocephalic. Atraumatic. EYES: Pupils equal and round. No scleral icterus. No injection or drainage. ENT: No nasal bleeding or discharge. Mucous membranes slightly dry. NECK: Supple. Trachea midline. CARDIOVASCULAR: Regular rate and rhythm. S1, S2 noted. No murmur appreciated. RESPIRATORY: No accessory muscle use. Clear to auscultation. Breath sounds equal bilaterally. GASTROINTESTINAL: Abdomen soft, non-tender, nondistended. Normoactive bowel sounds x4. MUSCULOSKELETAL: No obvious deformities. Extremities without clubbing, cyanosis , or edema. NEUROLOGICAL: Awake and alert, oriented to person/year only. No obvious cranial nerve deficits. Motor grossly within normal limits. Moves all extremities equally and spontaneously however generalized weakness, does not follow commands with strength testing. Normal speech. PSYCHIATRIC: Appropriate mood and affect; insight and judgment limited currently. Medications and IVs Current Medications Medications (Trade) Dose Ordered Sig/Danielle Route Start Time Stop Time Status Last Admin (Symbicort 160-4.5 Inh) 2 puff Q12HR INH 11/17/16 21:00 11/18/16 21:22 (Diovan) 80 mg DAILY PO 11/18/16 09:00 11/18/16 09:00 Latanoprost 1 drop 1 drop DAILY EACH EYE 11/18/16 09:00 11/18/16 11:54 (NS 1000 ml Inj) 1,000 ml @ 60 mls/hr [id number] IV 11/17/16 18:00 11/17/16 18:48 (NS Flush) 2 ml UNSCH PRN FLUSH 11/17/16 17:15 (NS Flush) 2 ml BID FLUSH 11/17/16 21:00 11/18/16 21:22 (Zofran Inj) 4 mg Q6H PRN IVP 11/17/16 18:00 (Colace) 100 mg Q12H PRN PO 11/17/16 17:15 (Tylenol) 650 mg Q6H PRN PO 11/17/16 18:00 (Bicknell 5-325 Mg) 1 tab Q4H PRN PO 11/17/16 18:00 Naloxone HCl 0.4 mg 0.4 mg UNSCH PRN IV 11/17/16 17:15 (Levaquin 750 Mg Premix Inj) 150 ml @ 100 mls/hr Q24H IV 11/18/16 17:00 11/18/16 17:33 Patient Own Medication PT OWN MED: [facility]... DAILY RIGHT EYE 11/19/16 09:00 Future Hold (Aspirin Chew) 81 mg DAILY CHEW 11/18/16 18:00 11/18/16 18:31 A/P Problem List: (1) Bronchitis ICD Code: J40 (2) Pneumonia ICD Code: J18.9 (3) HTN (hypertension) ICD Code: I10 (4) Failure of outpatient treatment ICD Code: Z78.9 (5) Acute metabolic encephalopathy ICD Code: G93.41 Assessment and Plan 1. Bronchitis he has suspected infection and is Improving on Empiric Antibiotic Levofloxacin, Improving with antibiotic he will continue Empiric management at home to complete seven days along with Probiotics and follow as outpatient by PCP 2. Acute Toxic Metabolic Encephalopathy Improved.the patient is been instructed about good nutrition and exercise that has to be performed on daily basis. 3. Deconditioning he is been evaluated by PT and OT no need for further management at home, he will go home with 's assistance. 4. COPD non exacerbated given Bronchodilator, Mucolytic and incentive spirometry. 5. Hypertension mild uncontrol medicines adjusted. 6. Dysphagia with weight loss 30 pounds, history of esophageal dilatation in May 2016, Speech therapy evaluation negative, continue normal diet. Instructed his about his bad habits for diet and will need Protein boots at least three a day. DVT Prophylaxis: Lovenox Seen by Physical Therapy no need will go home with helping the patient. Seen in the room and discussed with patient's agree with management. all questions answered to the best of my abilities. Code Status Full Code Discharge Planning Home with today Armand Whiteside MD Nov 19, 2016 08:44
[2016-11-19] MEDS ORDERED: VALSARTAN 80 MG TAB PO ONE (08:45)
[2016-11-19] MEDS ORDERED: LEVA750T PO (08:59)
[2016-11-19] MEDS ORDERED: DIOV160T6 PO (08:59)
[2016-11-19] MEDS ORDERED: LACTTAB8 PO (08:59)
[2016-11-19] MEDS ORDERED: MUCI600T PO (08:59)
[2016-11-19] MEDS ORDERED: BIMATOPROST RIGHT EYE SCH (09:00)
--- NOTE | 2016-11-19 09:02 | HHI.DS ---
Discharge Summary Admission Date Nov 17, 2016 at 17:15 Discharge Date: Nov 19, 2016 Admitting Diagnosis (1) Failure of outpatient treatment ICD Code: Z78.9 Diagnosis: Principal (2) Acute metabolic encephalopathy ICD Code: G93.41 Diagnosis: Principal (3) HTN (hypertension) ICD Code: I10 Diagnosis: Principal (4) Bronchitis ICD Code: J40 Diagnosis: Principal Procedures No procedures performed to the patient Brief History - From Admission 81-year-old male with history of childhood asthma, COPD, prior tobacco use, hypertension, hard of hearing, presents with a two-week history of cough, congestion, shortness of breath, and also increasing confusion today. The patient's is at bedside who assists with the history as the patient is very drowsy, hard of hearing, and oriented to person and year only; states he is at the dentist's office. The patient started experiencing nasal congestion and cough productive of clear sputum approximately two weeks ago. He went to an urgent care who gave him a prescription for an unknown antibiotic and prednisone. The patient never fully recovered, was having decreasing appetite and ongoing cough/congestion therefore he presented to [facility] ER on 11/13/16, chest x-ray was clear, diagnosed with bronchitis, and he was discharged with a Z-Milad and Phenergan with codeine. He has been taking his medications as prescribed. The patient was doing slightly better, however today he became acutely confused, talking nonsense, saying he needed one hundred dollars to pay someone back, and also did not know where the bathroom was in his own home. Last use of phenergan with codeine was yesterday. Denies any recent fevers/chills. Still with a cough productive of clear sputum. He has not been eating regularly and has lost around 30lbs in the past 6 months, previously weighed 160lbs. He did [place] an esophageal dil[place] ( [place] of [place]) however now food is starting to get stuck again. The tried to help the patient take a shower today, however he became extremely weak in the legs and needed a lot of assistance. This prompted her to bring him to the ER. While in the ER, the patient is very drowsy, constantly has to be awoken from sleep to answer questions, he would smile and make jokes when asking orientation questions but ultimately was only oriented to person, states the date is March 18, 2017, and that he is at the dentist's office. He cannot tell me what made him come to the hospital. CBC/BMP: 11/18/1619 11/18/16618 Significant Findings Laboratory Tests Test 11/17/16 11/17/16 11/17/16 11/18/16 15:03 15:10 19:02 06:19 Red Blood Count 4.31 MIL/MM3 3.88 MIL/MM3 (4.50-5.90) (4.50-5.90) Neutrophils (%) (Auto) 83.4 % 76.6 % (16.0-70.0) (16.0-70.0) Lymphocytes (%) (Auto) 8.3 % (9.0-44.0) Lymphocytes # (Auto) 0.7 TH/MM3 (1.0-4.8) Activated Partial 30.2 SEC Thromboplast Time (24.3-30.1) Chloride Level 109 MEQ/L 110 MEQ/L (98-107) (98-107) Blood Urea Nitrogen 19 MG/DL (7-18) Estimat Glomerular Filtration 60 ML/MIN (>89) 73 ML/MIN (>89) Rate Troponin I LESS THAN 0.02 NG/ML (0.02-0.05) B-Type Natriuretic Peptide 114 PG/ML (0-100) Albumin 3.3 GM/DL 2.8 GM/DL (3.4-5.0) (3.4-5.0) Urine Ketones 10 mg/dL (NEG) Urine Mucus FEW /lpf (OCC) Lactic Acid Level 3.0 mmol/L 2.2 mmol/L (0.4-2.0) (0.4-2.0) Hemoglobin 11.8 GM/DL (13.0-17.0) Hematocrit 35.2 % (39.0-51.0) Platelet Count 136 TH/MM3 (150-450) Monocytes (%) (Auto) 9.1 % (0.0-8.0) Calcium Level 8.3 MG/DL (8.5-10.1) Aspartate Amino Transf 11 U/L (15-37) (AST/SGOT) Total Protein 5.9 GM/DL (6.4-8.2) Imaging Last Impressions Head CT 11/17/16 142 Signed Impressions: Service Date/Time: November 15:26 - CONCLUSION: 1. No acute intracranial abnormality seen. 2. Age-related atrophy. Ed Echols MD Chest X-Ray 11/17/161421 Signed Impressions: Service Date/Time: November 15:24 - CONCLUSION: No acute disease. Ed Echols MD PE at Discharge GENERAL: No acute distress, in sitting position improving clinically. SKIN: Warm and dry. No rash. HEAD: Normocephalic. Atraumatic. EYES: Pupils equal and round. No scleral icterus. No injection or drainage. ENT: No nasal bleeding or discharge. Mucous membranes slightly dry. NECK: Supple. Trachea midline. CARDIOVASCULAR: Regular rate and rhythm. S1, S2 noted. No murmur appreciated. RESPIRATORY: No accessory muscle use. Clear to auscultation. Breath sounds equal bilaterally. GASTROINTESTINAL: Abdomen soft, non-tender, nondistended. Normoactive bowel sounds x4. MUSCULOSKELETAL: No obvious deformities. Extremities without clubbing, cyanosis , or edema. NEUROLOGICAL: Awake and alert, oriented to person/year only. No obvious cranial nerve deficits. Motor grossly within normal limits. Moves all extremities equally and spontaneously however generalized weakness, does not follow commands with strength testing. Normal speech. PSYCHIATRIC: Appropriate mood and affect; insight and judgment limited currently. Hospital Course 81-year-old male with history of childhood asthma, COPD, prior tobacco use, hypertension, hard of hearing, presents with a two-week history of cough, congestion, shortness of breath, and also increasing confusion today. The patient's is at bedside who assists with the history as the patient is very drowsy, hard of hearing, and oriented to person and year only; states he is at the dentist's office. The patient started experiencing nasal congestion and cough productive of clear sputum approximately two weeks ago. He went to an urgent care who gave him a prescription for an unknown antibiotic and prednisone. The patient never fully recovered, was having decreasing appetite and ongoing cough/congestion therefore he presented to [facility] ER on 11/13/16, chest x-ray was clear, diagnosed with bronchitis, and he was discharged with a Z-Milad and Phenergan with codeine. He has been taking his medications as prescribed. The patient was doing slightly better, however today he became acutely confused, talking nonsense, saying he needed one hundred dollars to pay someone back, and also did not know where the bathroom was in his own home. Last use of phenergan with codeine was yesterday. Denies any recent fevers/chills. Still with a cough productive of clear sputum. He has not been eating regularly and has lost around 30lbs in the past 6 months, previously weighed 160lbs. He did have an esophageal dilatation in [place] 2016 ( [place] of [place]) however now food is starting to get stuck again. The tried to help the patient take a shower today, however he became extremely weak in the legs and needed a lot of assistance. This prompted her to bring him to the ER. While in the ER, the patient is very drowsy, constantly has to be awoken from sleep to answer questions, he would smile and make jokes when asking orientation questions but ultimately was only oriented to person, states the date is March 18, 2017, and that he is at the dentist's office. He cannot tell me what made him come to the hospital. 11/19 Seen in his bedroom in the presence of nurse Miss Aguayo and his , he is improving, as per PT and OT no need to continue home management, he has good support at home, also he is been instructed about his nutritional state needs to get at least three times a day with Boost for Protein intake, he improved on Empiric Levofloxacin will continue for five days including today and follow by PCP. Assessment and Plan 1. Bronchitis he has suspected infection and is Improving on Empiric Antibiotic Levofloxacin, Improving with antibiotic he will continue Empiric management at home to complete seven days along with Probiotics and follow as outpatient by PCP 2. Acute Toxic Metabolic Encephalopathy Improved.the patient is been instructed about good nutrition and exercise that has to be performed on daily basis. 3. Deconditioning he is been evaluated by PT and OT no need for further management at home, he will go home with 's assistance. 4. COPD non exacerbated given Bronchodilator, Mucolytic and incentive spirometry. 5. Hypertension mild uncontrol medicines adjusted. Diovan to 80 mg BID. 6. Dysphagia with weight loss 30 pounds, history of esophageal dilatation in May 2016, Speech therapy evaluation negative, continue normal diet. Instructed his about his bad habits for diet and will need Protein boots at least three a day. DVT Prophylaxis: Lovenox Seen by Physical Therapy no need will go home with helping the patient. Seen in the room and discussed with patient's agree with management. all questions answered to the best of my abilities. Code Status Full Code Discharge Planning Home with today Pt Condition on Discharge: Good Discharge Disposition: Discharge Home Discharge Time: <= 30 minutes Discharge Instructions DIET: Follow Instructions for: Heart Healthy Diet Speech Therapy-Diet Recommends: Regular Activities you can perform: Regular-No Restrictions Armand Whiteside MD Nov 19, 2016 09:02
[2016-11-19] MEDS ORDERED: DIOV80TA4 PO (09:04)
== END 2016-11-19 10:39 | disposition home or self-care (01) | DRG 190 ==
LOC: NEPA 13:38 → NEDA 16:59 → OBSVTOIN 17:15 → N05A 20:18
PROVIDERS: ADMIT Internal Medicine; ATTEND Internal Medicine
DX: J44.0 Chronic obstructive pulmonary disease with (acute) lower respiratory infection (principal); J20.9 Acute bronchitis, unspecified; G92 Toxic encephalopathy; E87.2 Acidosis; R13.10 Dysphagia, unspecified; R63.4 Abnormal weight loss; I10 Essential (primary) hypertension; H91.90 Unspecified hearing loss, unspecified ear; Z87.891 Personal history of nicotine dependence; Z79.82 Long term (current) use of aspirin
CPT/HCPCS: 70450; 71010; 80053; 81001; 82550; 83605; 83880; 84443; 84484; 85025; 85610; 85730; 87040; 87070; 87205; 87449; 93005; 94664; 96360; J1956; J7030

== ENCOUNTER 2017-12-16 14:55 | Emergency (ER) | payer MEDICARE ==
[~2017-12-16 14:55] MED LIST changes: +ASPI81TA81; +D200CAP2; +DIOV80TA4 PO; +FERR83TA; +LACTTAB8 PO; +LEVA750T PO; +MUCI600T PO; -PHENERGAN W CODEIN PO; +SYMB160A INH; -ZITHTAB PO
[2017-12-16 15:11] VITALS: BP 163/99; PULSE 68; RESP 20; TEMP 98.8; O2SAT 99
[2017-12-16] MEDS ORDERED: SODIUM CHLORIDE 0.9% FLUSH 10 ML FLUSH IVF PRN (16:00)
[2017-12-16] MEDS: RESP: ALBUTEROL 2.5 MG/IPRATROPIUM 0.5 MG NEB (SCH) INH ×3 (16:00→16:30)
[2017-12-16] MEDS ORDERED: DEXAMETHASONE SOD PHOS 4 MG/ML VIAL IM ONE (16:00)
--- NOTE | 2017-12-16 16:00 | PD ---
HPI Chief Complaint: Respiratory Symptoms Time Seen by Provider: 15:45 Travel History International Travel<30 days: No Contact w/Intl Traveler<30days: No Traveled to known affect area: No History of Present Illness HPI 82-year-old male with PMH of HTN, COPD presents to the ED for evaluation of 1 week history of worsening shortness of breath, nonproductive cough. Patient endorses chills, lower extremity edema. He denies fevers, chest pain, palpitations, abdominal pain, nausea, vomiting. Was seen at urgent care 3 days ago and prescribed prednisone, moxifloxacin, albuterol nebulizers. He has been compliant with these medications. Daughter at bedside states that he had last at home albuterol treatments at 7 AM. No recent history of immobilization. No history of DVT. No history of CHF. PFSH Past Medical History Asthma: Yes Cancer: No Cardiovascular Problems: Yes Congestive Heart Failure: No COPD: Yes Diminished Hearing: Yes ([place]) Endocrine: No Genitourinary: No Hypertension: Yes Musculoskeletal: No Neurologic: No Psychiatric: No Reproductive: No Respiratory: Yes Past Surgical History Eye Surgery: Yes (JOSE CATARCT) Social History Alcohol Use: Yes (occ) Tobacco Use: No Substance Use: No Allergies-Medications (Allergen,Severity, Reaction): Coded Allergies: No Known Allergies (Unverified Adverse Reaction, Unknown, 12/16/17) Reported Meds & Prescriptions Reported Meds & Active Scripts Active Diovan (Valsartan) 80 Mg Tab 80 Mg PO BID Lactobacillus Acidophilus 1 Tab Tab 2 Tab PO DAILY Mucinex ER 12 HR (Guaifenesin) 600 Mg Chuck 600 Mg PO BID Levaquin (Levofloxacin) 750 Mg Tab 750 Mg PO DAILY Start Today 11/19/2016 Reported D3 (Cholecalciferol) 2,000 Unit Cap Ferrous Sulfate 27 Mg Tab Aspir-81 (Aspirin) 81 Mg Tabdr Symbicort Inh (Budesonide/Formoterol Fumarate) 160-4.5 Mcg/Act Aero 2 Puff INH Q12HR [place] Opth Drops (Bimatoprost) 0.01% Soln 1 Drop EACH EYE DAILY Review of Systems Except as stated in HPI: all other systems reviewed are Neg Physical Exam Narrative GENERAL: Well-nourished, well-developed white male in no acute distress. SKIN: Focused skin assessment warm/dry. HEAD: Normocephalic. EYES: No scleral icterus. No injection or drainage. NECK: Supple, trachea midline. No JVD or lymphadenopathy. CARDIOVASCULAR: Regular rate and rhythm without murmurs, gallops, or rubs. RESPIRATORY: Breath sounds tight with end expiratory wheezing bilaterally. No accessory muscle use. GASTROINTESTINAL: Abdomen soft, non-tender, nondistended. MUSCULOSKELETAL: No cyanosis, trace edema in the bilateral extremities, right greater than left. BACK: Nontender without obvious deformity. No CVA tenderness. Data Data Last Documented VS Vital Signs Date Time Temp Pulse Resp B/P (MAP) Pulse Ox O2 Delivery O2 Flow Rate FiO2 12/16/17 20:02 12/16/17 18:38 89 12/16/17 16:32 96 Room Air 12/16/17 15:11 98.8 20 Orders Orders Complete Blood Count With Diff (12/16/17 15:57) Comprehensive Metabolic Panel (12/16/17 15:57) B-Type Natriuretic Peptide (12/16/17 15:57) Act Partial Throm Time (Ptt) (12/16/17 15:57) Prothrombin Time / Inr (Pt) (12/16/17 15:57) Urinalysis - C+S If Indicated (12/16/17 15:57) Iv Access Insert/Monitor (12/16/17 15:57) Electrocardiogram (12/16/17 15:57) Ecg Monitoring (12/16/17 15:57) Oximetry (12/16/17 15:57) Oxygen Administration (12/16/17 15:57) Chest, Single Ap (12/16/17 15:57) Sodium Chloride 0.9% Flush (Ns Flush) (12/16/17 16:00) Albuterol-Ipratropium Neb (Duoneb Neb) (12/16/17 16:00) Dexamethasone Inj (Decadron Inj) (12/16/17 16:00) Sodium Chlorid 0.9% 500 Ml Inj (Ns 500 M (12/16/17 17:45) Ed Discharge Order (12/16/17 17:49) Labs Laboratory Tests Test 12/16/17 16:35 White Blood Count 10.5 TH/MM3 Red Blood Count 4.15 MIL/MM3 Hemoglobin 12.8 GM/DL Hematocrit 38.1 % Mean Corpuscular Volume 92.0 FL Mean Corpuscular Hemoglobin 31.0 PG Mean Corpuscular Hemoglobin Concent 33.7 % Red Cell Distribution Width 13.9 % Platelet Count 213 TH/MM3 Mean Platelet Volume 8.1 FL Neutrophils (%) (Auto) 76.4 % Lymphocytes (%) (Auto) 13.7 % Monocytes (%) (Auto) 8.4 % Eosinophils (%) (Auto) 1.0 % Basophils (%) (Auto) 0.5 % Neutrophils # (Auto) 8.0 TH/MM3 Lymphocytes # (Auto) 1.4 TH/MM3 Monocytes # (Auto) 0.9 TH/MM3 Eosinophils # (Auto) 0.1 TH/MM3 Basophils # (Auto) 0.0 TH/MM3 CBC Comment DIFF FINAL Differential Comment Prothrombin Time 10.6 SEC Prothromb Time International Ratio 1.0 RATIO Activated Partial Thromboplast Time 28.2 SEC Urine Color YELLOW Urine Turbidity CLEAR Urine pH 6.0 Urine Specific [place] 1.020 Urine Protein NEG mg/dL Urine Glucose (UA) NEG mg/dL Urine Ketones NEG mg/dL Urine Occult Blood NEG Urine Nitrite NEG Urine Bilirubin NEG Urine Urobilinogen 2.0 MG/DL Urine Leukocyte Esterase NEG Urine WBC LESS THAN 1 /hpf Urine Hyaline Casts 2 /lpf Urine Mucus FEW /lpf Microscopic Urinalysis Comment CULT NOT INDICATED Blood Urea Nitrogen 25 MG/DL Creatinine 1.41 MG/DL Random Glucose 86 MG/DL Total Protein 7.7 GM/DL Albumin 3.1 GM/DL Calcium Level 9.3 MG/DL Alkaline Phosphatase 97 U/L Aspartate Amino Transf (AST/SGOT) 19 U/L Alanine Aminotransferase (ALT/SGPT) 24 U/L Total Bilirubin 0.3 MG/DL Sodium Level 141 MEQ/L Potassium Level 4.4 MEQ/L Chloride Level 108 MEQ/L Carbon Dioxide Level 25.5 MEQ/L Anion Gap 8 MEQ/L Estimat Glomerular Filtration Rate 48 ML/MIN [facility] Medical Decision Making Medical Screen Exam Complete: Yes Emergency Medical Condition: Yes Differential Diagnosis COPD exacerbation versus bronchitis versus pneumonia versus less likely CHF versus less likely PE versus other Narrative Course 82-year-old male with PMH of HTN, COPD presents to the ED for evaluation of 1 week history of worsening shortness of breath, nonproductive cough. Patient endorses chills, lower extremity edema. He denies fevers, chest pain, palpitations, abdominal pain, nausea, vomiting. Was seen at urgent care 3 days ago and prescribed prednisone, moxifloxacin, albuterol nebulizers. He has been compliant with these medications. Daughter at bedside states that he had last at home albuterol treatments at 7 AM. No recent history of immobilization. No history of DVT. No history of CHF. Patient's afebrile, pulse 68, BP 163/99, respiratory rate 20 and pulse ox 99% on room air on presentation. Wells PE score 0. On exam this is a pleasant elderly gentleman in no acute distress. Lung sounds with end expiratory wheezing bilaterally. Trace edema in the lower extremities, right greater than left. Exam otherwise unremarkable. Patient was administered 4 mg of Decadron IM, duo nebs 3. EKG rate 76, sinus rhythm with occasional PVC. MT interval 139, QRS 82, QTC 324 ms. Normal axis. No acute ST changes. Reviewed by Dr. Rebollar. EKG: Mild basilar pleural-parenchymal opacities per radiology read. On recheck the patient reports improvement of his symptoms. Wheezing is improved on auscultation. No concerning abnormalities of the CBC, coags within normal limits. BUN 25 and creatinine of 1.4, GFR 48. No culture indicated of the UA. Patient was administered 500 mL's normal saline. I discussed the results of the workup with the patient and his family. They are instructed to continue with the medications previously prescribed at the outpatient clinic, follow with the primary care or imaging nurse tomorrow. They are agreeable with this plan. The patient is stable and discharged home. Diagnosis Primary Impression: COPD exacerbation Additional Impression: Dehydration Referrals: Primary Care Physician Additional Instructions: Rest, hydrate. Continue antibiotics and prednisone as prescribed by previous provider. Continue albuterol nebulizers every 4-6 hours during waking hours. Follow up with the primary care and imaging nurse. Return to the ED for worsening symptoms or any urgent/ emergent medical condition. Disposition: 01 DISCHARGE HOME Condition: Stable Eden Segovia Dec 16, 2017 16:00
[2017-12-16 16:32] VITALS: O2SAT 97
--- NOTE | 2017-12-16 16:40 | RADRPT ---
EXAM DATE/TIME: 12/16/2017 16:15 [facility] COMPARISON: CHEST SINGLE AP, November 17, 2016, 15:24. INDICATIONS : Shortness of breath. MEDICAL HISTORY : None. SURGICAL HISTORY : None. ENCOUNTER: Initial ACUITY: 2 weeks PAIN SCORE: 0/10 LOCATION: Bilateral chest FINDINGS: Mild bibasilar parenchymal opacities. Blunting of the costophrenic angle may indicate small effusion. Cardiac contours are grossly stable. CONCLUSION: Mild basilar pleural parenchymal opacities Ed Nash MD on December 16, 2017 at 16:37 Board Certified Radiologist. This report was verified electronically.
[2017-12-16 16:50] LABS: BASOPHIL % 0.5 % (0.0-2.0); EOSINOPHIL # 0.1 TH/MM3 (0-0.4); HEMATOCRIT 38.1 % (39.0-51.0); HEMOGLOBIN 12.8 GM/DL (13.0-17.0); LYMPH % 13.7 % (9.0-44.0); LYMPHOCYTE # 1.4 TH/MM3 (1.0-4.8); MEAN CORPUSCULAR HGB CONC 33.7 % (32.0-36.0); MEAN PLATELET VOLUME 8.1 FL (7.0-11.0); MONO % 8.4 % (0.0-8.0); MONOCYTE # 0.9 TH/MM3 (0-0.9); NEUT % 76.4 % (16.0-70.0); PLATELET COUNT 213 TH/MM3 (150-450); RED BLOOD COUNT 4.15 MIL/MM3 (4.50-5.90); RED CELL DISTRIBUTION WIDTH 13.9 % (11.6-17.2); WHITE BLOOD COUNT 10.5 TH/MM3 (4.0-11.0)
[2017-12-16 16:53] LABS: BILIRUBIN, URINE NEG (NEG); BLOOD, URINE NEG (NEG); GLUCOSE,URINE NEG (NEG); HYALINE CAST, URINE 2 /lpf (RARE); KETONE, URINE NEG (NEG); MUCUS URINE FEW /lpf (OCC); NITRITE,URINE NEG (NEG); URINE COLOR YELLOW (YELLW/STRAW); URINE LEUKOCYTE ESTERASE NEG (NEG)
[2017-12-16 17:03] LABS: PROTHROMBIN TIME - PATIENT 10.6 SEC (9.8-11.6)
[2017-12-16 17:17] LABS: ALBUMIN 3.1 GM/DL (3.4-5.0); AST (GOT) 19 U/L (15-37); BICARBONATE 25.5 MEQ/L (21.0-32.0); BLOOD UREA NITROGEN 25 MG/DL (7-18); CALCIUM 9.3 MG/DL (8.5-10.1); CHLORIDE 108 MEQ/L (98-107); CREATININE 1.41 MG/DL (0.60-1.30); GLOMERULAR FILTRATION RATE 48 ML/MIN (>89); GLUCOSE,RANDOM 86 MG/DL (74-106); SODIUM (NA) 141 MEQ/L (136-145)
[2017-12-16 17:18] LABS: ALT (GPT) 24 U/L (12-78)
[2017-12-16 17:20] LABS: ALKALINE PHOSPHATASE 97 U/L (45-117); TOTAL BILIRUBIN ADULT 0.3 MG/DL (0.2-1.0); TOTAL PROTEIN 7.7 GM/DL (6.4-8.2)
[2017-12-16] MEDS ORDERED: SODIUM CHLORID 0.9% 500 ML INJ 500 ML IV ONE (17:45)
[2017-12-16 18:38] VITALS: BP 137/61; PULSE 89
--- NOTE | 2017-12-17 14:24 | EKG ---
Date Performed: 12/16/2017 Time Performed: 17:26:15 PTAGE: 82 years EKG: Sinus rhythm WITH OCCASIONAL VENTRICULAR PREMATURE COMPLEXES BORDERLINE LEFT AXIS DEVIATION NONSPECIFIC ST & T-WA VE ABNORMALITY BORDERLINE ECG Since PREVIOUS TRACING , no significant change noted PREVIOUS TRACIN11/17/2016 12.13.54 DOCTOR: Heather Chapman Interpretating Date/Time 12/17/2017 14:23:00
== END 2017-12-16 20:03 | disposition home or self-care (01) ==
LOC: NEPC 14:55
DX: J44.1 Chronic obstructive pulmonary disease with (acute) exacerbation (principal); E86.0 Dehydration; I10 Essential (primary) hypertension
CPT/HCPCS: 71045; 80053; 81001; 83880; 85025; 85610; 85730; 93005; 94664; 96372; 99285; J1100; J7040